=== PATIENT | female | born 1935 | race Caucasian/White ===

== ENCOUNTER 2017-02-09 08:59 | Inpatient (IN) | payer OTHER ==
[~2017-02-09] VITALS: Ht 167.6 cm; Wt 61.2 kg
--- NOTE | 2017-02-09 11:00 | ED GI/GU/ABDOMINAL COMPLAINT ---
History of Present Illness General Chief Complaint: Female Urogenital Problems Stated Complaint: HEAVY VAGINAL BLEEDING Source: patient, family, old records Exam Limitations: no limitations Vital Signs & Intake/Output Vital Signs & Intake/Output Vital Signs Date Time Temp Pulse Resp B/P B/P Pulse O2 O2 Flow FiO2 Mean Ox Delivery Rate 02/09 1421 98.0 81 18 147/71 99 Room Air 02/09 1330 98.6 82 16 130/65 99 Room Air 02/09 1238 98.0 77 20 138/66 100 Room Air 02/09 1238 97 Room Air 02/09 1057 92 145/66 01/ 1054 98.0 100 20 148/76 100 Room Air 02/09 0902 97.1 125 20 156/74 90 Room Air Allergies Coded Allergies: Pork/Porcine Containing Products (UNKNOWN 01/19/17) Sulfa (Sulfonamide Antibiotics) (UNKNOWN 01/19/17) turkey (UNKNOWN 01/19/17) Uncoded Allergies: ETOH (UNKNOWN 01/19/17) SEAFOOD (UNKNOWN 01/19/17) Reconcile Medications No Known Home Medications Triage Note: PT TO ED WITH SON FOR CONTINUED VAGINAL BLEEDING. PT WAS SEEN ON 01/19 FOR SAME THING. PT SAW DR DESAI AND HAS A D&C SCHEDULED FOR 02/25/17. PT STATES THE BLEEDING HAS BEEN ON AND OFF SINCE PT STATES THE BLEEDING HAS BEEN ON AND OFF SINCE FIRST VISIT TO ED BUT THE PAST FEW DAYS IT HAS BEEN GETTING HEAVIER. DENIES ANY PAIN. C/O FEELING WEAK. Triage Nurses Notes Reviewed? yes ? n Is pt currently ? No Onset: Gradual Duration: constant, getting worse, x 1 month Timing: recent history Quality/Severity: no pain Severity Numbers: 1 Location: denies Radiation: no radiation Activities at Onset: none No Modifying Factors: none Associated Symptoms: dizzy, lightheaded HPI: 81-year-old female with no known medical history presents to ER for evaluation complaining of persistent, heavier vaginal bleeding now passing large clots. She was seen here in this emergency room last month for the same and is scheduled for a D&C with Dr. Desai on February 25. She states the bleeding is getting more persistent and severe. She denies any abdominal pain nausea vomiting dysuria urgency frequency. No chest pain or palpitations. She does report to feeling intermittently dizzy and lightheaded (Chandler Juarez) Past History Travel History Traveled to [place] past 21 day No Medical History Any Pertinent Medical History? none Neurological: NONE EENT: NONE Cardiovascular: NONE Respiratory: NONE Gastrointestinal: NONE Hepatic: NONE Renal: NONE Musculoskeletal: NONE Psychiatric: NONE Endocrine: NONE Blood Disorders: NONE Cancer(s): NONE PULP GRINDER/Reproductive: NONE Surgical History Surgical History: non-contributory Psychosocial History What is your primary language Turkmen Tobacco Use: Never used ETOH Use: denies use Illicit Drug Use: denies illicit drug use Family History Hx Contributory? No (Chandler Juarez) Review of Systems Review of Systems Constitutional: Reports: see HPI. All Other Systems: Reviewed and Negative Comments Review of systems: See HPI, All other systems negative. Constitutional, no chills no fever, no malaise no weight loss HEENT: no sore throat no congestion, no ear pain Cardiovascular: No chest pain , no palpitation Skin: no rashes, no change in skin Respiratory: No dyspnea no cough no sputum no hemoptysis GI: No nausea no vomiting, no diarrhea, no bloating/constipation : No dysuria No hematuria, no frequency Muscle skeletal: No joint pain, no back pain, no neck pain, Neurologic: , no headache Psych: No stress no depression,. Heme/endocrine: No bruising no bleeding Immunology: No lymphadenopathy (Chandler Juarez) Physical Exam Physical Exam General Appearance: well developed/nourished, alert, awake Gastrointestinal: soft Comments: Well-developed well-nourished person in no acute distress HEENT: Normal EENT exam; PERRL, EOMI, HEAD is atraumatic. moist mucous membranes. Neck: Supple, normal range of motion Back: no CVA tenderness. Full range of motion Cardiovascular: Regular rate and rhythms no murmurs rubs Respiratory: No respiratory distress. Patient speaking in full complete sentences. Breath sounds clear to auscultation bilaterally: NO W/R/R Abdomen: Soft, nontender nondistended, no appreciable organomegaly. Normal bowel sounds. No rebound/guarding, Extremity: No edema, full range of motion of extremities, Neuro: Alert oriented x3, motor sensory normal, There were no obvious focal neurologic abnormalities. Skin: No appreciable rash on exposed skin, skin is warm and dry. Psych: Mood and affect is normal, memory and judgment is normal. Core Measures ACS in differential dx? No Sepsis Present: No Sepsis Focused Exam Completed? No (Eladia BONILLA,Chandler) Progress Differential Diagnosis: UTI/pyelo, malignancy, fibroid, anemia, jasen, electrolyte abnormality Plan of Care: Orders Procedure Date/time Status CBC WITHOUT DIFFERENTIAL 02/10 06 Active BASIC ELECTROLYTES PLUS BUN&CR 02/10 0600 Active Nothing by Mouth 02/09 D Active CBC WITHOUT DIFFERENTIAL 02/09 1900 Active Pathway - chart 02/09 1413 Active Saline Lock 02/09 1411 Active Pathway - chart 02/09 1411 Active House Staff 02/09 1411 Active Patient Data 02/09 1359 Active OXYGEN SETUP (GEN) 02/09 1358 Active Saline Lock 02/[address] in observation 02/09 1358 Active Vital Signs 02/09 1358 Active Activity/Ambulation 02/09 1358 Active Code Status 02/09 1358 Active BLOOD PRODUCT PICKUP 02/09 1240 Active Intake & Output 02/09 1237 Active Add-on Test (ER Only) 02/09 1222 Active LEUKOCYTE POOR (PACKED CELLS) 02/09 1222 Active EKG 02/09 1150 Active PARTIAL THROMBOPLASTIN TIME 02/09 1106 Complete PROTHROMBIN TIME 02/09 1106 Complete URINALYSIS 02/09 1046 Active CBC WITHOUT DIFFERENTIAL 02/09 1046 Complete BASIC METABOLIC PANEL 02/09 1046 Complete TYPE & SCREEN (NOT X-MATCH) 02/09 1046 Active VTE Mechanical Prophylaxis 02/09 UNK Active Current Medications Sig/Janice Start time Last Medication Dose Stop Time Status Admin Acetaminophen 650 MG Q6P PRN 02/09 1415 AC (Tylenol) Acetaminophen 1,000 MG Q6P PRN 02/09 1415 AC (Ofirmev) Hydromorphone HCl 0.4 MG Q8P PRN 02/09 1415 AC (Dilaudid) Laboratory Tests 02/09/17 1106: Anion Gap 11, Estimated GFR > 60, BUN/Creatinine Ratio 24.3, Glucose 124 H, Calcium 9.0, PT 11.7, INR 1.12, APTT 23 L, CBC w Diff NO MAN DIFF REQ, RBC 3.01 L, MCV 86.9, MCH 27.7, RDW 14.7 H, MPV 6.9 L, Gran % 83.0 H, Lymphocytes % 12.0 L, Monocytes % 4.6, Eosinophils % 0.1, Basophils % 0.3, Absolute Granulocytes 9.2 H, Absolute Lymphocytes 1.3, Absolute Monocytes 0.5, Absolute Eosinophils 0, Absolute Basophils 0, PUBS MCHC 31.9 L LABS AND US ORDERED PT CONSENTED FOR BLOOD TRANSFUSION, CASE DW DR OBREGON AGREES WITH PLAN 1245 I D/W DR DESAI WHO AGREES WITH PLAN FOR TRANSFUSION, THAT PT SHOULD BE ADMITTED TO MEDICINE AND NEEDS TO BE CLEARED PRIOR TO ANY D&c BEING PERFORMED Call placed the patient's primary care Dr. Hernandez I spoke with the patient's primary care physician Dr. HERNANDEZ who will place her in observation GEN med Diagnostic Imaging: Viewed by Me: Ultrasound. Discussed w/RAD: Ultrasound. Radiology Impression: PATIENT: DANNIE MELENDEZ PRESENT AGE: 81 PATIENT ACCOUNT NO: [id number] : 37 LOCATION: [facility] ORDERING PHYSICIAN: Chandler BONILLA SERVICE DATE: 02/09/17 EXAM TYPE: US - US- TRANSVAGINAL EXAMINATION: ULTRASOUND OF THE PELVIS CLINICAL INFORMATION: Heavy vaginal bleeding.. COMPARISON: 01/19/2017. TECHNIQUE: Transabdominal and transvaginal pelvic ultrasound. Doppler evaluation with spectral analysis was performed. A transvaginal study was performed in addition to the transabdominal study which did not yield an adequate examination of the uterus and ovaries due to superimposed distended gas-filled loops of bowel. FINDINGS: The uterus is normal in size and appearance, measuring 8.1 x 5.2 x 6.1 cm longitudinally, anteroposteriorly and transversely. The endometrial stripe thickness is prominent, measuring 1.1 cm in thickness. There are 2 uterine mass is identified. There is a right fundal mass measuring 2.6 x 1.8 x 1.8 cm. This demonstrates peripheral calcification. There is a more central mass impinging upon the endometrium which is hyperechoic and demonstrates Doppler flow. This measures 3.4 x 3.2 x 2.9 cm. The cervical length is normal measuring 0.2 cm. The ovaries are not visualized. No adnexal mass or free fluid collection seen. IMPRESSION: 2 uterine mass is identified likely representing fibroids. The more prominent impinges upon the endometrium.. DICTATED BY: Truong SILVER,Angel DATE/TIME DICTATED:02/09/171152 PRODUCTION RECOVERY OPERATOR:RAD.HENDERSON DATE/TIME TRANSCRIBED:02/09/17 / 1152 CONFIDENTIAL, DO NOT COPY WITHOUT APPROPRIATE AUTHORIZATION. <Electronically signed in Other Vendor System> SIGNED BY: Angel Guerin MD 02/09/171158 Initial ED EKG: normal intervals, normal p-waves, normal QRS complex, normal sinus rhythm (Chandler Juarez) Departure Departure Disposition: STILL A PATIENT Condition: Stable Clinical Impression Primary Impression: Anemia Secondary Impressions: Dysmenorrhea Referrals: Mark Hernandez MD (PCP/Family) Departure Forms: Customer Survey General Discharge Information Prescriptions: Current Visit Scripts No Known Home Medications Observation Note Spoke With: Mark Hernandez MD Physician Advisor Notified: VALENTÍN SILVER,THUAN [address] Place Patient In: Non-ED OBS Care Area Rationale for Observation: My rational for observation is as follows trend labs, h/h pt will require at least one unit of blood, auto service dispatcher consult, premature discharge would be medically harmful (Chandler Juarez) PA/BROADCAST PROGRAM DIRECTOR Co-Sign Statement Statement: ED Attending supervision documentation- x I saw and evaluated the patient. I have also reviewed all the pertinent lab results and diagnostic results. I agree with the findings and the plan of care as documented in the PA's/BROADCAST PROGRAM DIRECTOR's documentation. Prolonged vaginal bleeding now with symptomatic anemia requiring transfusion [] I have reviewed the ED Record and agree with the PA's/BROADCAST PROGRAM DIRECTOR's documentation. [] Additions or exceptions (if any) to the PAs/BROADCAST PROGRAM DIRECTOR's note and plan are summarized below: [] (Vanna SILVER,Vj)
[2017-02-09 11:14] LABS: ABSOLUTE BASOPHIL COUNT 0 /CUMM (0.0-0.2); ABSOLUTE EOSINOPHIL COUNT 0 /CUMM (0.0-0.7); ABSOLUTE GRANULOCYTE CT 9.2 /CUMM (1.4-6.5); ABSOLUTE LYMPH COUNT 1.3 /CUMM (1.2-3.4); ABSOLUTE MONOCYTE COUNT 0.5 /CUMM (0.10-0.60); BASOPHIL % 0.3 % (0.0-2.0); EOSINOPHIL % 0.1 % (0-5); HEMATOCRIT 26.2 % (37-47); MEAN CORPUSCULAR HGB 27.7 PG (27.0-31.0); MEAN CORPUSCULAR HGB CONC 31.9 G/DL (33.0-37.0); MEAN CORPUSCULAR VOLUME 86.9 FL (81.0-99.0); MEAN PLATELET VOLUME 6.9 FL (7.4-10.4); PLATELET COUNT 333 /CUMM (130-400); RBC DISTRIBUTION WIDTH 14.7 % (11.5-14.5); RED BLOOD CELL CT 3.01 /CUMM (4.20-5.40); WHITE BLOOD CELL COUNT 11.1 /CUMM (4.8-10.8)
--- NOTE | 2017-02-09 11:59 | ULTRASOUND REPORT ---
EXAMINATION: ULTRASOUND OF THE PELVIS CLINICAL INFORMATION: Heavy vaginal bleeding.. COMPARISON: 01/19/2017. TECHNIQUE: Transabdominal and transvaginal pelvic ultrasound. Doppler evaluation with spectral analysis was performed. A transvaginal study was performed in addition to the transabdominal study which did not yield an adequate examination of the uterus and ovaries due to superimposed distended gas-filled loops of bowel. FINDINGS: The uterus is normal in size and appearance, measuring 8.1 x 5.2 x 6.1 cm longitudinally, anteroposteriorly and transversely. The endometrial stripe thickness is prominent, measuring 1.1 cm in thickness. There are 2 uterine mass is identified. There is a right fundal mass measuring 2.6 x 1.8 x 1.8 cm. This demonstrates peripheral calcification. There is a more central mass impinging upon the endometrium which is hyperechoic and demonstrates Doppler flow. This measures 3.4 x 3.2 x 2.9 cm. The cervical length is normal measuring 0.2 cm. The ovaries are not visualized. No adnexal mass or free fluid collection seen. IMPRESSION: 2 uterine mass is identified likely representing fibroids. The more prominent impinges upon the endometrium..
[2017-02-09 12:43] LABS: PT 11.7 SEC (9.4-12.5); PTT 23 SEC (25-37)
--- NOTE | 2017-02-09 15:07 | History & Physical ---
Kodi SILVER,[facility] 02/09/17 1506: General Information and HPI MD Statement: I have seen and personally examined DANNIE GONZALES and documented this H&P. The patient is a 81 year old F who presented with a patient stated chief complaint of [vaginal bleed]. Source of Information: patient History of Present Illness: 81 yo F with no significiant pmhx presenting for wrosening vaginal bleeding and lightheadeness and felt like she almost passed out. Patient states that the symptoms started 2 years ago and has been increasing in severity ever since. She says the bleeding is worst when she is more active and states she is still very active outside. Today she states that she became SOB when climibing the stairs. States [place] believes this is caused by fibroids rather than endometrial cancer. She denies any fevers, chill,s headahes , cp, n/v/d, abd pain or changes in elimiatinon. 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 Cardiovascular: Reports: no symptoms. Respiratory: Reports: short of breath. GI: Reports: no symptoms. Genitourinary: Reports: no symptoms. Neurological/Psychological: Reports: other (dizziness, passing out). Exam & Diagnostic Data Last 24 Hrs of Vital Signs/I&O Vital Signs Date Time Temp Pulse Resp B/P B/P Pulse O2 O2 Flow FiO2 Mean Ox Delivery Rate 02/09 2258 98.3 76 16 124/58 98 02/09 1715 98.3 80 16 118/62 98 Room Air 02/09 1632 98.4 77 16 144/73 99 Room Air 02/09 1421 98.0 81 18 147/71 99 Room Air 02/09 1330 98.6 82 16 130/65 99 Room Air 02/09 1238 98.0 77 20 138/66 100 Room Air 02/09 1238 97 Room Air 02/09 1057 92 145/66 02/09 1054 98.0 100 20 148/76 100 Room Air 02/09 0902 97.1 125 20 156/74 90 Room Air Intake & Output 02/10 0800 02/10 0000 02/09 1600 Intake Total 1230 0 Output Total 400 Balance 830 0 Intake, Blood 350 Product Intake, IV 400 Intake, Oral 480 0 Number 0 Bowel Movements Output, Urine 400 Patient 140 lb 140 lb Weight Weight Estimated Measurement Method Physical Exam General Appearance Alert, Oriented X3, Cooperative, No Acute Distress Skin Temp/Moisture Exam: Warm/Dry Cardiovascular Regular Rate, Normal S1, Normal S2 Lungs Clear to Auscultation, Normal Air Movement Abdomen Normal Bowel Sounds, Soft, No Tenderness Vascular 2+ radial pulses Last 24 Hrs of Labs/Blayne: Laboratory Tests 02/09/17 2030: CBC w Diff NO MAN DIFF REQ, RBC 3.17 L, MCV 84.1, MCH 28.7, RDW 15.1 H, MPV 8.0, Gran % 70.2, Lymphocytes % 23.1, Monocytes % 5.7, Eosinophils % 0.5, Basophils % 0.5, Absolute Granulocytes 6.3, Absolute Lymphocytes 2.1, Absolute Monocytes 0.5, Absolute Eosinophils 0, Absolute Basophils 0, PUBS MCHC 34.2 02/09/17 2000: Urine Color BLDY H, Urine Clarity CLDY H, Urine pH 7.0, Ur Specific Patterson 1.020, Urine Protein 100 H, Urine Ketones TRACE H, Urine Nitrite POS H, Urine Bilirubin NEG@ICTO, Urine Urobilinogen 1.0, Ur Leukocyte Esterase MOD H, Ur Microscopic SEDIMENT EXAMINED, Urine RBC >75 H, Urine WBC 10-15 H, Ur Epithelial Cells RARE, Urine Bacteria RARE H, Urine Mucus RARE, Urine Hemoglobin LARGE H, Urine Glucose NEG 02/09/17 1106: Anion Gap 11, Estimated GFR > 60, BUN/Creatinine Ratio 24.3, Glucose 124 H, Calcium 9.0, PT 11.7, INR 1.12, APTT 23 L, CBC w Diff NO MAN DIFF REQ, RBC 3.01 L, MCV 86.9, MCH 27.7, RDW 14.7 H, MPV 6.9 L, Gran % 83.0 H, Lymphocytes % 12.0 L, Monocytes % 4.6, Eosinophils % 0.1, Basophils % 0.3, Absolute Granulocytes 9.2 H, Absolute Lymphocytes 1.3, Absolute Monocytes 0.5, Absolute Eosinophils 0, Absolute Basophils 0, PUBS MCHC 31.9 L Assessment/Plan Assessment: 81 yo F with no significiant pmhx presenting for wrosening vaginal bleeding and lightheadeness and felt like she almost passed out most likely due to symptomatic anemia from her vaginal bleeding #symptomatic anemia due to vaginal bleed 2/2 to fibroids Vaginal US - 2 uterine mass is identified likely representing fibroids. The more prominent impinges upon the endometrium.. H/H 8.4/26.2 -> 9.1/26.6 after 1 unit of prbc Spoke with Dr. Desai who recommended medically stablizing and clearing the patient for a D+C . She stated that the patient has had negative smears and cultures per office testing. -monitor cbc, bep -f/u cxr, ekg, orthostats for medical clearance DVT ppx: ALPS Full code. As Ranked By This Provider Problem List: 1. Dysmenorrhea 2. Post-menopausal bleeding Core Measures/Misc (10/25) Acute Coronary Syndrome ACS Diagnosis: No Congestive Heart Failure Congestive Heart Failure Diagnosis No Cerebrovascular Accident CVA/TIA Diagnosis: No VTE (View Protocol) VTE Risk Factors Acute Medical Illness No Mechanical VTE Prophylaxis d/t N/A MechProphylax Ordered No VTE Pharm Prophylaxis d/t Medical Contraindication Sepsis (View protocol) Sepsis Present: No Stepan Piper 02/09/17 1802: Resident Review Statement Resident Statement: examined this patient, discussed with logistics intern, agreed with logistics intern, discussed with family, discussed with nursing, discussed with case mgmt, reviewed images Other Findings: Mrs. Gonzales is a 81 yo lady with no significant PMHx. presented to ED with active vaginal bleeding started about 3 days ago, started to be heavy overnight with clots, she became symptomatic today at am with dizziness and almost passed out, no LOC. She report became out of breath on climbing stairs. She denies any pain, chest pain, fever chills and no change in bowel or urinary habits. Vitals, examiantion, labs and imaging as above Assessment: #Uterine Fibroid with acute blood loss anemia Plan: -She is under observation in the general medicine floor -She received 1 unit of blood in the ED, will repeat CBC at 7 pm, transfuse as needed -YOUTH TEACHER consult placed with Dr. Desai, who request to optimized the patient for D&C on . -CBC, BEP at am -Monitor hemodynamics DVT ppx: ALPS Full code. Mark Perez MD 02/10/17 1412: Attending MD Review Statement Attending Statement Attending MD Statement: examined this patient, agreed w/resident/PA/BAT BOY/GIRL, discussed with family, reviewed EMR data (avail), amended to note Attending Assessment/Plan: Mrs. Gonzales was interviewed and examined on the evening of her admission. Her EMR was reviewed. Problems: -Acute blood loss anemia -Postural hypotension -Postmenopausal bleeding Plan: -Observation on general medicine -Serial H&H -Transfused with PRBCs to maintain hematocrit above 25% -ACADEMIC AFFAIRS VICE PRESIDENT consultation Jada Desai MD
[2017-02-09 17:15] VITALS: BP 118/62
[2017-02-09 20:52] LABS: ABSOLUTE BASOPHIL COUNT 0 /CUMM (0.0-0.2); ABSOLUTE EOSINOPHIL COUNT 0 /CUMM (0.0-0.7); ABSOLUTE GRANULOCYTE CT 6.3 /CUMM (1.4-6.5); ABSOLUTE LYMPH COUNT 2.1 /CUMM (1.2-3.4); ABSOLUTE MONOCYTE COUNT 0.5 /CUMM (0.10-0.60); BASOPHIL % 0.5 % (0.0-2.0); EOSINOPHIL % 0.5 % (0-5); GRANULOCYTE % 70.2 % (42.2-75.2); HEMATOCRIT 26.6 % (37-47); MEAN CORPUSCULAR HGB 28.7 PG (27.0-31.0); MEAN CORPUSCULAR HGB CONC 34.2 G/DL (33.0-37.0); MEAN CORPUSCULAR VOLUME 84.1 FL (81.0-99.0); PLATELET COUNT 274 /CUMM (130-400); RBC DISTRIBUTION WIDTH 15.1 % (11.5-14.5); RED BLOOD CELL CT 3.17 /CUMM (4.20-5.40)
[2017-02-09 22:58] VITALS: BP 124/58
[2017-02-10 06:33] VITALS: BP 130/60
[2017-02-10 06:38] VITALS: BP 130/60
--- NOTE | 2017-02-10 07:29 | PN- Housestaff ---
Kodi SILVER,[facility] 02/10/17 0728: Subjective Follow-up For: blood loss anemia 2/2 fibroids Subjective: Patient states she has had 3 large bloody movement since admission. Does not complain of any pain. No other complaints. Review of Systems Constitutional: Reports: see HPI (vaginal blood clots). Cardiovascular: Reports: no symptoms. Respiratory: Reports: no symptoms. Gastrointestinal: Reports: no symptoms. Genitourinary: Reports: no symptoms. Musculoskeletal: Reports: no symptoms. Objective Last 24 Hrs of Vital Signs/I&O Vital Signs Date Time Temp Pulse Resp B/P B/P Pulse O2 O2 Flow FiO2 Mean Ox Delivery Rate 02/10 1501 98.1 75 20 128/70 100 Room Air 02/10 0638 98.3 66 16 130/60 99 Room Air 02/10 0633 66 130/60 02/09 2258 98.3 76 16 124/58 98 02/09 1715 98.3 80 16 118/62 98 Room Air Intake & Output 02/10 1600 02/10 0800 02/10 0000 Intake Total 694 242 4564 Output Total 500 450 400 Balance 100 315 830 Intake, Blood 350 Product Intake, IV 0 525 400 Intake, Oral 600 240 480 Number 0 0 0 Bowel Movements Output, Urine 500 450 400 Patient 140 lb Weight Physical Exam General Appearance: Alert, Oriented X3, Cooperative Skin Temp/Moisture Exam: Warm/Dry Cardiovascular: Regular Rate, Normal S1, Normal S2 Lungs: Clear to Auscultation, Normal Air Movement Abdomen: Normal Bowel Sounds, Soft, No Tenderness Extremities: cap refill <2 seconds Current Medications: Current Medications Sig/Janice Start time Last Medication Dose Route Stop Time Status Admin Acetaminophen 650 MG Q6P PRN 02/09 1415 AC PO Acetaminophen 1,000 MG Q6P PRN 02/09 1415 AC IV Hydromorphone HCl 0.4 MG Q8P PRN 02/09 1415 AC IV Patient Medication 1 ED ONE ONE 02/10 1215 DC 02/10 Teaching ED 02/10 1216 1218 Potassium Chloride 60 MEQ ONCE ONE 02/10 1230 DC 02/10 PO 02/10 1231 1327 Sodium Chloride 1,000 ML Q13H 02/09 1715 DC 02/09 IV 02/10 0614 1806 Last 24 Hrs of Lab/Blayne Results Last 24 Hrs of Labs/Mics: Laboratory Tests 02/10/17 1700: CBC w Diff Cancelled, WBC Cancelled, RBC Cancelled, Hgb Cancelled, Hct Cancelled , MCV Cancelled, MCH Cancelled, RDW Cancelled, Plt Count Cancelled, MPV Cancelled, PUBS MCHC Cancelled 02/10/17 1540: CBC w Diff NO MAN DIFF REQ, RBC 3.08 L, MCV 85.9, MCH 28.2, RDW 15.0 H, MPV 7.9, Gran % 68.6, Lymphocytes % 24.6, Monocytes % 5.7, Eosinophils % 0.6, Basophils % 0.5, Absolute Granulocytes 4.9, Absolute Lymphocytes 1.8, Absolute Monocytes 0.4, Absolute Eosinophils 0, Absolute Basophils 0, [facility] MCHC 32.8 L 02/10/17 0730: Anion Gap 8, Estimated GFR > 60, BUN/Creatinine Ratio 23.3, CBC w Diff NO MAN DIFF REQ, RBC 2.88 L, MCV 85.2, MCH 28.5, RDW 14.9 H, MPV 7.9, Gran % 63.4, Lymphocytes % 29.3, Monocytes % 6.1, Eosinophils % 0.8, Basophils % 0.4, Absolute Granulocytes 3.7, Absolute Lymphocytes 1.7, Absolute Monocytes 0.4, Absolute Eosinophils 0, Absolute Basophils 0, [facility] MCHC 33.4 02/09/17 2030: CBC w Diff NO MAN DIFF REQ, RBC 3.17 L, MCV 84.1, MCH 28.7, RDW 15.1 H, MPV 8.0, Gran % 70.2, Lymphocytes % 23.1, Monocytes % 5.7, Eosinophils % 0.5, Basophils % 0.5, Absolute Granulocytes 6.3, Absolute Lymphocytes 2.1, Absolute Monocytes 0.5, Absolute Eosinophils 0, Absolute Basophils 0, [facility] MCHC 34.2 02/09/17 2000: Urine Color BLDY H, Urine Clarity CLDY H, Urine pH 7.0, Ur Specific [place] 1.020, Urine Protein 100 H, Urine Ketones TRACE H, Urine Nitrite POS H, Urine Bilirubin NEG@ICTO, Urine Urobilinogen 1.0, Ur Leukocyte Esterase MOD H, Ur Microscopic SEDIMENT EXAMINED, Urine RBC >75 H, Urine WBC 10-15 H, Ur Epithelial Cells RARE, Urine Bacteria RARE H, Urine Mucus RARE, Urine Hemoglobin LARGE H, Urine Glucose NEG Assessment/Plan Assessment: Pt admitted to inpatient for preop optimizaiton, q8 cbc checks, and possible transfusion if needed. 81 yo F with no significiant pmhx presenting for wrosening vaginal bleeding and lightheadeness and felt like she almost passed out most likely due to symptomatic anemia from her vaginal bleeding #symptomatic anemia due to vaginal bleed 2/2 to fibroids Vaginal US - 2 uterine mass is identified likely representing fibroids. The more prominent impinges upon the endometrium.. HCT 26.4 -NPO @ midnight for D+C tomorrow -monitor cbc q8, bep -f/u obgyn consult #hypokalemia 3.4 today, repleted 60mg today -follow bep DVT ppx: ALPS Full code. Problem List: 1. Anemia 2. Post-menopausal bleeding 3. Hypokalemia Pain Ratin Pain Location: none Pain Goal: Pain 4 or less Pain Plan: pain pathway Tomorrow's Labs & Rationales: cbcq8 bep Mark Perez MD 02/10/17 1421: Attending MD Review Statement Attending Statement Attending MD Statement: examined this patient, discuss w/resident/PA/NAVAL AIRCREWMAN MECHANICAL, agreed w/resident/PA/NAVAL AIRCREWMAN MECHANICAL, discussed with family, reviewed EMR data (avail), reviewed images, amended to note Attending Assessment/Plan: Mrs. Gonzales was interviewed and examined. Her EMR was reviewed. She is sitting comfortably in bed of her family in attendance. She does note once again the passing of large clots vaginally. She denies chest pain, SOB, and lightheadedness. She has no GI complaints. She is afebrile with a pulse rate in the mid 60s. Her BP is 773598/60. Oxygen saturation is 99% on room air. Is in no acute distress. Pulmonary and cardiac exams are benign. Her hematocrit on the last determination is 24.5% and her potassium is 3-4. EKG shows sinus rhythm with normal intervals and nonspecific ST-T changes. Chest x- ray shows normal cardiac and pulmonary structures with no pathology. Mrs. Gonzales continues to have significant bleeding which is requiring transfusion. In addition she is borderline hypokalemic which we will address by repletion. We await consultation from her steam fitter helper.A this time due to her continued bleeding we will admit this patient and do her D&C on an urgent basis.
[2017-02-10 08:35] LABS: ABSOLUTE BASOPHIL COUNT 0 /CUMM (0.0-0.2); ABSOLUTE EOSINOPHIL COUNT 0 /CUMM (0.0-0.7); ABSOLUTE GRANULOCYTE CT 3.7 /CUMM (1.4-6.5); ABSOLUTE LYMPH COUNT 1.7 /CUMM (1.2-3.4); ABSOLUTE MONOCYTE COUNT 0.4 /CUMM (0.10-0.60); BASOPHIL % 0.4 % (0.0-2.0); EOSINOPHIL % 0.8 % (0-5); GRANULOCYTE % 63.4 % (42.2-75.2); HEMATOCRIT 24.5 % (37-47); MEAN CORPUSCULAR HGB 28.5 PG (27.0-31.0); MEAN CORPUSCULAR HGB CONC 33.4 G/DL (33.0-37.0); MEAN CORPUSCULAR VOLUME 85.2 FL (81.0-99.0); MEAN PLATELET VOLUME 7.9 FL (7.4-10.4); PLATELET COUNT 230 /CUMM (130-400); RBC DISTRIBUTION WIDTH 14.9 % (11.5-14.5); RED BLOOD CELL CT 2.88 /CUMM (4.20-5.40); WHITE BLOOD CELL COUNT 5.8 /CUMM (4.8-10.8)
--- NOTE | 2017-02-10 09:42 | RADIOLOGY REPORT ---
EXAMINATION: XR CHEST CLINICAL INFORMATION: Preoperative. Postmenopausal bleeding. COMPARISON: None TECHNIQUE: 2 views of the chest were obtained. FINDINGS: Lungs are well expanded and clear. No evidence of pulmonary nodule, interstitial disease or pleural effusion. Cardiac silhouette is normal in size and the mediastinal and hilar contours are normal. Multilevel osteophyte formation and mild levocurvature of the thoracic spine. Minimal osteoarthrosis of bilateral glenohumeral joints. IMPRESSION: No evidence of cardiopulmonary disease.
[2017-02-10 15:01] VITALS: BP 128/70
[2017-02-10 16:42] LABS: ABSOLUTE BASOPHIL COUNT 0 /CUMM (0.0-0.2); ABSOLUTE EOSINOPHIL COUNT 0 /CUMM (0.0-0.7); ABSOLUTE GRANULOCYTE CT 4.9 /CUMM (1.4-6.5); ABSOLUTE LYMPH COUNT 1.8 /CUMM (1.2-3.4); ABSOLUTE MONOCYTE COUNT 0.4 /CUMM (0.10-0.60); BASOPHIL % 0.5 % (0.0-2.0); EOSINOPHIL % 0.6 % (0-5); GRANULOCYTE % 68.6 % (42.2-75.2); HEMATOCRIT 26.4 % (37-47); MEAN CORPUSCULAR HGB 28.2 PG (27.0-31.0); MEAN CORPUSCULAR HGB CONC 32.8 G/DL (33.0-37.0); MEAN CORPUSCULAR VOLUME 85.9 FL (81.0-99.0); MEAN PLATELET VOLUME 7.9 FL (7.4-10.4); PLATELET COUNT 259 /CUMM (130-400); RED BLOOD CELL CT 3.08 /CUMM (4.20-5.40); WHITE BLOOD CELL COUNT 7.2 /CUMM (4.8-10.8)
--- NOTE | 2017-02-10 19:47 | Cons- OBGYN ---
General Information and HPI Consulting Request Date of Consult: 02/10/17 Requested By: Ana SILVER,Mark Edmond History of Present Illness: 81-year-old 3 para 3003 postmenopausal for over 20 years who presented to my office approximately 3 weeks ago complaining of vaginal bleeding. Patient was admitted through the ER 2 days ago with heavy bleeding has required 2 units of blood for her anemia and her low H&H. Patient currently still has vaginal bleeding she reports 3 black clots morning. Patient has been followed by Mark Perez MD request consult and patient was scheduled for D&C on February 25 high there was some delay secondary to social issues and insurance issues Allergies/Medications Allergies: Coded Allergies: Pork/Porcine Containing Products (UNKNOWN 01/19/17) Sulfa (Sulfonamide Antibiotics) (UNKNOWN 01/19/17) turkey (UNKNOWN 01/19/17) Uncoded Allergies: ETOH (UNKNOWN 01/19/17) SEAFOOD (UNKNOWN 01/19/17) Home Med List: No Known Home Medications Past History Medical History Blood Transfusion Hx: Yes Type of Reaction: NA Neurological: NONE EENT: NONE Cardiovascular: NONE Respiratory: NONE Gastrointestinal: NONE Hepatic: NONE Renal: NONE Musculoskeletal: NONE Psychiatric: NONE Endocrine: NONE Blood Disorders: NONE Cancer(s): NONE VOLCANOLOGY TEACHER/Reproductive: NONE Surgical History Pertinent Surgical History: non-contributory Psychosocial History Where Do You Live? Home Services at Home: None Smoking Status: Never Smoked ETOH Use: denies use Illicit Drug Use: denies illicit drug use Review of Systems Review of Systems: -13 point review of systems Exam & Diagnostic Data Vital Signs and I&O Vital Signs Date Time Temp Pulse Resp B/P B/P Pulse O2 O2 Flow FiO2 Mean Ox Delivery Rate 02/10 1501 98.1 75 20 128/70 100 Room Air 02/10 0638 98.3 66 16 130/60 99 Room Air 02/10 0633 66 130/60 02/09 2258 98.3 76 16 124/58 98 Intake & Output 02/10 1600 02/10 0802/10 0000 02/09 1600 02/09 0802/09 0000 Intake Total 992 795 4370 0 Output Total 500 450 400 Balance 100 315 830 0 Intake, Blood 350 Product Intake, IV 0 525 400 Intake, Oral 600 240 480 0 Number 0 0 0 Bowel Movements Output, Urine 500 450 400 Patient 140 lb 140 lb Weight Weight Estimated Measurement Method Physical Exam: Pale white female HEENT anicteric Abdomen soft nondistended Vulva bloodstained uterus normal-sized no adnexal masses cervix clean cervix remedies negative edema Assessment/Plan Assessment/Plan Assessment is postmenopausal bleeding following plan is for an emergency D&C nothing by mouth after midnight Consult Acknowledgment - Thank you for your consult request.
[2017-02-10 21:31] VITALS: BP 138/70; BP 140/60
--- NOTE | 2017-02-10 23:22 | PN- Att Addend ---
Attending Addendum Attending Brief Note Mrs Crouch's EMR was again reviewed as well as her EKG. She is cleared for her procedure as she represents a low surgicla risk.
[2017-02-11] VITALS (7 sets, daily range): BP systolic 124–156; BP diastolic 64–80
[2017-02-11 00:24] LABS: ABSOLUTE BASOPHIL COUNT 0 /CUMM (0.0-0.2); ABSOLUTE EOSINOPHIL COUNT 0.1 /CUMM (0.0-0.7); ABSOLUTE GRANULOCYTE CT 4.1 /CUMM (1.4-6.5); ABSOLUTE MONOCYTE COUNT 0.5 /CUMM (0.10-0.60); BASOPHIL % 0.4 % (0.0-2.0); GRANULOCYTE % 61.1 % (42.2-75.2); HEMATOCRIT 24.5 % (37-47); MEAN CORPUSCULAR HGB 28.3 PG (27.0-31.0); MEAN CORPUSCULAR HGB CONC 33.4 G/DL (33.0-37.0); MEAN CORPUSCULAR VOLUME 84.8 FL (81.0-99.0); MEAN PLATELET VOLUME 7.6 FL (7.4-10.4); PLATELET COUNT 260 /CUMM (130-400); RBC DISTRIBUTION WIDTH 14.8 % (11.5-14.5); RED BLOOD CELL CT 2.88 /CUMM (4.20-5.40); WHITE BLOOD CELL COUNT 6.7 /CUMM (4.8-10.8)
--- NOTE | 2017-02-11 07:45 | PN- Housestaff ---
[place] SILVER,[facility] 02/11/17 0745: Subjective Follow-up For: Acute blood loss anemia secondary to fibroids Subjective: Patient states she is doing well. No complaints. States that she had one small bloody discharge today. Review of Systems Constitutional: Reports: no symptoms. Cardiovascular: Reports: no symptoms. Respiratory: Reports: no symptoms. Gastrointestinal: Reports: no symptoms. Genitourinary: Reports: see HPI, discharge. Musculoskeletal: Reports: no symptoms. Objective Last 24 Hrs of Vital Signs/I&O Vital Signs Date Time Temp Pulse Resp B/P B/P Pulse O2 O2 Flow FiO2 Mean Ox Delivery Rate 02/11 1431 98.4 68 18 136/66 99 Room Air 02/11 1210 98.1 68 18 124/64 96 Room Air Room Air 02/11 0910 97.8 68 18 126/68 96 Room Air Room Air 02/11 0845 97.8 70 18 128/66 96 Room Air Room Air 02/11 0642 98.1 72 20 136/70 96 Room Air 02/10 2131 98.5 78 20 138/70 99 Room Air 02/10 1501 98.1 75 20 128/70 100 Room Air Intake & Output 02/11 1600 02/11 0800 02/11 0000 Intake Total 350 Output Total 750 Balance -400 Intake, Blood 350 Product Intake, Oral 0 Number 0 Bowel Movements Output, Urine 750 Patient 135 lb Weight Weight Reported by Patient Measurement Method Physical Exam General Appearance: Alert, Oriented X3, Cooperative, No Acute Distress Skin Temp/Moisture Exam: Warm/Dry Cardiovascular: Regular Rate, Normal S1, Normal S2, No Murmurs Lungs: Clear to Auscultation, Normal Air Movement Abdomen: Normal Bowel Sounds, Soft, No Tenderness Extremities: 2+ radial pulses Assessment/Plan Assessment: 81 yo F with no significiant pmhx presenting for wrosening vaginal bleeding and lightheadeness and felt like she almost passed out most likely due to symptomatic anemia from her vaginal bleeding was likely secondary to fibroids. #symptomatic anemia due to vaginal bleed 2/2 to fibroids Vaginal US - 2 uterine mass is identified likely representing fibroids. The more prominent impinges upon the endometrium. HCT 26.4 -D+C today -monitor cbc q8 with HCT goal >25 #hypokalemia - resolved 4.1 today -follow bep, replete as needed DVT ppx: ALPS Full code. Problem List: 1. Post-menopausal bleeding 2. Dysmenorrhea 3. Anemia Pain Ratin Pain Location: none Pain Goal: Pain 4 or less Pain Plan: pain pathway Tomorrow's Labs & Rationales: cbc q8 bep Mark Perez MD 02/11/17 1402: Attending MD Review Statement Attending Statement Attending MD Statement: examined this patient, agreed w/resident/PA/CEMENT MIXER, reviewed EMR data (avail), amended to note Attending Assessment/Plan: Mrs. Gonzales was interviewed and examined. Her EMR was reviewed. She is resting comfortably in bed awaiting her procedure. Her only complaint is that of "hunger pains". She denies chest pain, lightheadedness, SOB, and palpitations. She is afebrile her heart rate is in the mid to high 60s. Respirations are 18. Blood pressure is mid 120s over mid 60s. Oxygen saturation satisfactory. She is in no acute distress. Pulmonary exam is clear to A&P. Cardiac exam reveals a regular rate and rhythm and is without murmur. Her abdomen and extremities are benign. Hematocrit is 28 and her potassium has corrected. Mrs. Burks is stable and awaiting her procedure in the OR. We will continue to follow her postoperatively.
[2017-02-11 08:30] LABS: ABSOLUTE BASOPHIL COUNT 0 /CUMM (0.0-0.2); ABSOLUTE EOSINOPHIL COUNT 0.1 /CUMM (0.0-0.7); ABSOLUTE GRANULOCYTE CT 3.7 /CUMM (1.4-6.5); ABSOLUTE LYMPH COUNT 1.8 /CUMM (1.2-3.4); ABSOLUTE MONOCYTE COUNT 0.4 /CUMM (0.10-0.60); BASOPHIL % 0.6 % (0.0-2.0); EOSINOPHIL % 1.2 % (0-5); GRANULOCYTE % 61.5 % (42.2-75.2); HEMATOCRIT 25.1 % (37-47); MEAN CORPUSCULAR HGB 28.3 PG (27.0-31.0); MEAN CORPUSCULAR HGB CONC 32.9 G/DL (33.0-37.0); MEAN CORPUSCULAR VOLUME 86.1 FL (81.0-99.0); MEAN PLATELET VOLUME 8.5 FL (7.4-10.4); PLATELET COUNT 159 /CUMM (130-400); RED BLOOD CELL CT 2.92 /CUMM (4.20-5.40); WHITE BLOOD CELL COUNT 6.1 /CUMM (4.8-10.8)
[2017-02-11 13:37] LABS: ABSOLUTE BASOPHIL COUNT 0 /CUMM (0.0-0.2); ABSOLUTE EOSINOPHIL COUNT 0 /CUMM (0.0-0.7); ABSOLUTE MONOCYTE COUNT 0.5 /CUMM (0.10-0.60); HEMATOCRIT 28.4 % (37-47); WHITE BLOOD CELL COUNT 6.9 /CUMM (4.8-10.8)
[2017-02-11 13:39] LABS: ABSOLUTE GRANULOCYTE CT 4.7 /CUMM (1.4-6.5); ABSOLUTE LYMPH COUNT 1.5 /CUMM (1.2-3.4); BASOPHIL % 0.7 % (0.0-2.0); EOSINOPHIL % 0.6 % (0-5); GRANULOCYTE % 68.7 % (42.2-75.2); MEAN CORPUSCULAR HGB 28.6 PG (27.0-31.0); MEAN CORPUSCULAR HGB CONC 33.2 G/DL (33.0-37.0); MEAN CORPUSCULAR VOLUME 86.2 FL (81.0-99.0); MEAN PLATELET VOLUME 7.8 FL (7.4-10.4); RBC DISTRIBUTION WIDTH 14.6 % (11.5-14.5)
[2017-02-11 13:41] LABS: PLATELET COUNT 255 /CUMM (130-400)
[2017-02-11 21:55] LABS: ABSOLUTE BASOPHIL COUNT 0 /CUMM (0.0-0.2); ABSOLUTE EOSINOPHIL COUNT 0 /CUMM (0.0-0.7); ABSOLUTE GRANULOCYTE CT 9.3 /CUMM (1.4-6.5); ABSOLUTE LYMPH COUNT 0.8 /CUMM (1.2-3.4); ABSOLUTE MONOCYTE COUNT 0.1 /CUMM (0.10-0.60); BASOPHIL % 0 % (0.0-2.0); EOSINOPHIL % 0.1 % (0-5); HEMATOCRIT 30.6 % (37-47); MEAN CORPUSCULAR HGB 28.5 PG (27.0-31.0); MEAN CORPUSCULAR VOLUME 86.4 FL (81.0-99.0); MEAN PLATELET VOLUME 8.1 FL (7.4-10.4); PLATELET COUNT 272 /CUMM (130-400); RBC DISTRIBUTION WIDTH 14.7 % (11.5-14.5); RED BLOOD CELL CT 3.54 /CUMM (4.20-5.40); WHITE BLOOD CELL COUNT 10.2 /CUMM (4.8-10.8)
[2017-02-11 22:28] LABS: GRANULOCYTE % 91.3 % (42.2-75.2)
[2017-02-12 06:35] VITALS: BP 130/72
--- NOTE | 2017-02-12 07:13 | PN- Housestaff ---
Kodi SILVER,[facility] 02/12/17 0712: Subjective Follow-up For: D+C Subjective: Patient states she is doing well. Slight discomfort after surgery. Still has spotting blood. Review of Systems Constitutional: Reports: see HPI. Cardiovascular: Reports: no symptoms. Respiratory: Reports: no symptoms. Gastrointestinal: Reports: no symptoms. Genitourinary: Reports: see HPI (spotting). Musculoskeletal: Reports: no symptoms. Skin: Reports: no symptoms. Objective Last 24 Hrs of Vital Signs/I&O Vital Signs Date Time Temp Pulse Resp B/P B/P Pulse O2 O2 Flow FiO2 Mean Ox Delivery Rate 02/12 0635 97.5 83 18 130/72 97 Room Air 02/11 2252 98.0 87 18 132/76 96 Room Air Intake & Output 02/12 1600 02/12 0800 02/12 0000 Intake Total 800 240 960 Output Total 600 450 650 Balance 200 -210 310 Intake, Oral 800 240 960 Number 1 Bowel Movements Output, Urine 600 450 650 Physical Exam General Appearance: Alert, Oriented X3, Cooperative Skin Temp/Moisture Exam: Warm/Dry Cardiovascular: Regular Rate, Normal S1, Normal S2 Lungs: Clear to Auscultation, Normal Air Movement Abdomen: Normal Bowel Sounds, Soft, No Tenderness Vascular: 2+ radial pulses Current Medications: Current Medications Sig/Janice Start time Last Medication Dose Route Stop Time Status Admin Acetaminophen 325 MG .STK-MED ONE 02/12 0500 DC PO 02/12 0501 Acetaminophen 650 MG Q6P PRN 02/09 1415 DCD 02/12 PO 0502 Acetaminophen 1,000 MG Q6P PRN 02/09 1415 DCD IV Hydromorphone HCl 0.4 MG Q8P PRN 02/09 1415 DCD IV Last 24 Hrs of Lab/Blayne Results Last 24 Hrs of Labs/Mics: Laboratory Tests 02/12/17 0805: Anion Gap 11, Estimated GFR > 60, BUN/Creatinine Ratio 21.4, CBC w Diff NO MAN DIFF REQ, RBC 3.40 L, MCV 85.8, MCH 28.8, RDW 14.5, MPV 8.0, Gran % 78.5 H, Lymphocytes % 16.1 L, Monocytes % 5.1, Eosinophils % 0, Basophils % 0.3, Absolute Granulocytes 7.9 H, Absolute Lymphocytes 1.6, Absolute Monocytes 0.5, Absolute Eosinophils 0, Absolute Basophils 0, PUBS MCHC 33.6 02/11/172040: CBC w Diff NO MAN DIFF REQ, RBC 3.54 L, MCV 86.4, MCH 28.5, RDW 14.7 H, MPV 8.1, Gran % 91.3 H, Lymphocytes % 7.9 L, Monocytes % 0.7 L, Eosinophils % 0.1 , Basophils % 0, Absolute Granulocytes 9.3 H, Absolute Lymphocytes 0.8 L, Absolute Monocytes 0.1, Absolute Eosinophils 0, Absolute Basophils 0, PUBS MCHC 33.0 Assessment/Plan Assessment: 81 yo F with no significiant pmhx presenting for wrosening vaginal bleeding and lightheadeness and felt like she almost passed out most likely due to symptomatic anemia from her vaginal bleeding was likely secondary to fibroids. #symptomatic anemia due to vaginal bleed 2/2 to fibroids Vaginal US - 2 uterine mass is identified likely representing fibroids. The more prominent impinges upon the endometrium. H/H stable at 9-10/29-30 -s/p D+C today, plan for discharge -f/u with PCP and OBGYN for biopsy results #hypokalemia - resolved 4.0 today DVT ppx: ALPS Full code. Problem List: 1. Anemia 2. Post-menopausal bleeding Pain Ratin Pain Location: Pain Goal: Pain 4 or less Pain Plan: tylenol Tomorrow's Labs & Rationales: none Mark Perez MD 02/12/17 1307: Attending MD Review Statement Attending Statement Attending MD Statement: examined this patient, discuss w/resident/PA/BUNG SEWER, agreed w/resident/PA/BUNG SEWER, discussed with family, reviewed EMR data (avail), discussed with nursing, amended to note Attending Assessment/Plan: Mrs. Gonzales had a successful procedure yesterday. She has no complaints today but specifically denies lightheadedness, chest pain, SOB, and palpitations. She still notes some minimal spotting. She is afebrile and all her vital signs are acceptable. She is in no acute distress. Her physical examination is benign. Laboratory studies are stable and acceptable. Pathology reports are pending. At this time Mrs. Gonzales may be discharged to home. A transition visit will be arranged for 1-2 weeks.
--- NOTE | 2017-02-12 08:13 | Patient Discharge Instructions ---
Discharge Instructions General Discharge Information Special Instructions: Please follow up with your pcp in 1 -2 weeks. Please follow up with your OBGYN in 1-2 weeks. Please avoid NSAIDs or aspirin for 1 week. Diet Continue normal diet: Yes Activity Full Activity/No Limits: No Other activity limits: Please perform activities as tolerated. Acute Coronary Syndrome Inclusion Criteria At DC or during hospital stay patient has or had the following: ACS DIAGNOSIS No Discharge Core Measures Meds if any: Prescribed or Continued at Discharge Meds if any: NOT Prescribed or Continued at Discharge Congestive Heart Failure Inclusion Criteria At DC or during hospital stay patient has or had the following: CHF DIAGNOSIS No Discharge Core Measures Meds if any: Prescribed or Continued at Discharge Meds if any: NOT Prescribed or Continued at Discharge Cerebrovascular accident Inclusion Criteria At DC or during hospital stay patient has or had the following: CVA/TIA Diagnosis No Discharge Core Measures Meds if any: Prescribed or Continued at Discharge Meds if any: NOT Prescribed or Continued at Discharge Venous thromboembolism Inclusion Criteria VTE Diagnosis No VTE Type NONE VTE Confirmed by (Test) NONE Discharge Core Measures - Per Current guidelines, there needs to be overlap - treatment for the first 5 days of Warfarin therapy. - If discharged on Warfarin prior to 5 days of - overlap therapy, the patient will need to be - assessed for post discharge needs including - *Post discharge parental anticoagulation - *Warfarin and/or parental anticoagulation education - *Follow up date to check INR post discharge At least 5 days overlap therapy as Inpatient No Meds if any: Prescribed or Continued at Discharge Note: Overlap Therapy is Warfarin and Anticoagulant Meds if any: NOT Prescribed or Continued at Discharge
[2017-02-12] MEDS ORDERED: TYLENOL325 M1 PO (08:14)
[2017-02-12 09:30] LABS: ABSOLUTE BASOPHIL COUNT 0 /CUMM (0.0-0.2); ABSOLUTE EOSINOPHIL COUNT 0 /CUMM (0.0-0.7); ABSOLUTE GRANULOCYTE CT 7.9 /CUMM (1.4-6.5); ABSOLUTE LYMPH COUNT 1.6 /CUMM (1.2-3.4); ABSOLUTE MONOCYTE COUNT 0.5 /CUMM (0.10-0.60); BASOPHIL % 0.3 % (0.0-2.0); EOSINOPHIL % 0 % (0-5); GRANULOCYTE % 78.5 % (42.2-75.2); HEMATOCRIT 29.1 % (37-47); MEAN CORPUSCULAR HGB 28.8 PG (27.0-31.0); MEAN CORPUSCULAR HGB CONC 33.6 G/DL (33.0-37.0); MEAN CORPUSCULAR VOLUME 85.8 FL (81.0-99.0); PLATELET COUNT 286 /CUMM (130-400); RBC DISTRIBUTION WIDTH 14.5 % (11.5-14.5); WHITE BLOOD CELL COUNT 10.1 /CUMM (4.8-10.8)
--- NOTE | 2017-02-15 00:59 | Discharge Summary ---
Visit Information Visit Dates Admission Date: 02/10/17 Discharge Date: 02/12/17 Hospital Course Course Attending Physician: Mark Perez MD Primary Care Physician: Mark Perez MD Hospital Course: A: 81 yo F with no significiant pmhx presenting for wrosening vaginal bleeding and lightheadeness due to symptomatic anemia from her vaginal bleeding secondary to fibroids. Problems: #symptomatic anemia due to vaginal bleed 2/2 to fibroids The patient presented with symptomatic bleeding and lightheadedness from her fibroids. She states her vaginal bleeding has been on going for 2 years and has been getting wrost. Vaginal US revealed 2 uterine mass likely representing fibroids. The more prominent mass impinges upon the endometrium. She was orginally scheduled for a D+C on 02/25/17. During admission she had a D+C on by Dr. Desai. Upon discharge her H/H was stable at 9-10/29-30. She was advised to f/u with her PCP (Dr. Perez) and OBGYN (Dr. Desai) for biopsy results Allergies: Coded Allergies: Pork/Porcine Containing Products (UNKNOWN 01/19/17) Sulfa (Sulfonamide Antibiotics) (UNKNOWN 01/19/17) turkey (UNKNOWN 01/19/17) Uncoded Allergies: ETOH (UNKNOWN 01/19/17) SEAFOOD (UNKNOWN 01/19/17) Disposition Summary Disposition Principal Diagnosis: Symptomatic anemia secondary of uterine fibroids Additional Diagnosis: None Discharge Disposition: home or self care Discharge Instructions General Discharge Information Code Status: Full Code Patient's Diet: Regular Patient's Activity: As tolerated Follow-Up Instructions/Appts: Please follow up with your pcp in 1 -2 weeks. Please follow up with your OBGYN in 1-2 weeks. Please avoid NSAIDs or aspirin for 1 week. 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 Mrs. Gonzales he has been referred to Dr. Donaldo Davalos at [facility] for further care.
--- NOTE | 2017-02-16 10:23 | Operative Report ---
Operative/Inv Procedure Report Surgery Date: 02/11/17 Name of Procedure: D&C hysteroscopy Pre-Operative Diagnosis: Postmenopausal bleeding Post-Operative Diagnosis: Same Estimated Blood Loss: 50ml to 100ml Surgeon/Aircraft Sales Representative: Jada Desai M.D. Anesthesia: moderate sedation Operative/Procedure Note Note: Patient was taken to the operating room placed in dorsal supine position. After adequate anesthesia, patient was prepped and draped for surgery. Examination under anesthesia was performed. CO2 tenaculum was placed on the anterior lip of the cervix gentle downward traction was used. The cervix was dilated 29 Hegar to left insertion of the hysteroscope. Under direct visualization to hysteroscopy was performed using gas hysteroscope was removed and endocervical curettage was performed. And endometrial curettage was performed. All instruments removed from the vagina. The counts were correct the patient was awakened from anesthesia. And transported to recovery room awake and alert. Findings: Largest uterus no adnexal masses heavy uterine lining normal cervical appearance
== END 2017-02-12 15:21 | DRG 744 ==
LOC: ERH 08:59 → 2NB 13:58 → ERHI 13:58 → ENRESERV 14:32 → ENTRNSPT 16:41 → EDTRNSPTTYP 16:59 → EDTRNSPT 16:59 → 2NB 17:05 → CMPTRNSPT 17:15 → 2NB 02-10 15:50 → ENTRNSPT 02-11 17:51 → EDTRNSPTSTS 02-11 17:56 → EDTRNSPT 02-11 17:56 → CMPTRNSPT 02-11 18:40 → 2NB 02-12 15:21
PROVIDERS: Physician Assistant Medical; Student in an Organized Health Care Education/Training Program
PROC: 30233N1 Transfusion of Nonautologous Red Blood Cells into Peripheral Vein, Percutaneous Approach (ICD-10-PCS; 2017-02-09)
PROC: 0UDB8ZX Extraction of Endometrium, Via Natural or Artificial Opening Endoscopic, Diagnostic (ICD-10-PCS; principal; 2017-02-11)
DX: C55 Malignant neoplasm of uterus, part unspecified (principal); D62 Acute posthemorrhagic anemia; D25.9 Leiomyoma of uterus, unspecified; N95.0 Postmenopausal bleeding; I95.1 Orthostatic hypotension; E87.6 Hypokalemia
CPT/HCPCS: 2NBP; 36415; 71046; 81001; 82436; 86920; 93005; 93010; 99291; J0131; P9016